=== PATIENT | female | born 1970 ===

== ENCOUNTER 2022-05-02 09:16 | Emergency (ER) | payer OTHER ==
[2022-05-02 09:27] VITALS: BP 121/72; PULSE 87; RESP 16; TEMP 98.7; BMI 28.8
[2022-05-02] MEDS ORDERED: DEXAMETHASONE SOD PHOSPHATE 10 MG/1 ML VIAL PO ONE (10:07)
[2022-05-02] MEDS ORDERED: DEXAMETHASONE SOD PHOSPHATE 10 MG/1 ML VIAL ONE (10:14)
== END 2022-05-02 10:45 | disposition home or self-care (01) ==
LOC: JER 09:16
DX: R50.9 Fever, unspecified (principal); R05.1 Acute cough; J02.9 Acute pharyngitis, unspecified; R09.81 Nasal congestion
CPT/HCPCS: 99283-25; J1100